=== PATIENT | male | born 1960 | race Caucasian/White ===

== ENCOUNTER 2017-01-26 10:39 | Emergency (ER) | payer SELFPAY ==
[~2017-01-26] VITALS: Ht 170.2 cm; Wt 81.6 kg
[2017-01-26 10:40] VITALS: BP_SYST 116
--- NOTE | 2017-01-26 10:40 | NUR ---
[facility] to bed 4
--- NOTE | 2017-01-26 10:45 | NUR ---
Dr. Quevedo at bedside for evaluation
[2017-01-26] MEDS ORDERED: NALOXONE HCL 2 MG/2 ML SYR IVP ONE (11:00)
--- NOTE | 2017-01-26 11:00 | NUR ---
pt refusing IV, refusing lab draw. [facility] notified
--- NOTE | 2017-01-26 12:00 | NUR ---
Ambulatory to restroom with steady gait.
--- NOTE | 2017-01-26 13:00 | NUR ---
Pt continuing to refuse evaluation and any tx. Pt AAOx4. Phone numbers provided by pt called. Family unable for pt pickup. Family reports pt has h/o beligerent behavior, ETOH and drug use. Pt remains noncomplaint with information regarding circumstances prior to ED arrival. Dr. Quevedo explained AMA to pt.
[2017-01-26] MEDS ORDERED: KETAMINE HCL 500 MG/10 ML VIAL IM ONE (13:15)
[2017-01-26 13:18] VITALS: BP_SYST 116
--- NOTE | 2017-01-26 13:18 | NUR ---
Patient does not wish to proceed with medical care recommended by Dr. Quevedo. Patient given information related to possible complications, up to and including , which could occur as a result of leaving hospital at this time. Patient verbalizes understanding of risks involved leaving against medical advice. Patient has signed AMA form.
== END 2017-01-26 13:18 | disposition left against medical advice (07) ==
LOC: SED 10:39 → SIC 17:51 → UNDOADMIN 17:51
DX: S09.90XA Unspecified injury of head, initial encounter (principal); K21.9 Gastro-esophageal reflux disease without esophagitis; I10 Essential (primary) hypertension; Y04.2XXA Assault by strike against or bumped into by another person, initial encounter; Y93.89 Activity, other specified; Y92.89 Other specified places as the place of occurrence of the external cause; Y99.8 Other external cause status
CPT/HCPCS: 71010; 93005; 94640; 99284

== ENCOUNTER 2017-01-26 14:29 | Inpatient (IN) | payer OTHER ==
[~2017-01-26] VITALS: Ht 172.7 cm; Wt 81.6 kg
[2017-01-26 14:30] VITALS: BP_SYST 118
[2017-01-26] MEDS ORDERED: ONDANSETRON HCL 4 MG/2 ML VIAL IVP ONE (15:15)
[2017-01-26] MEDS ORDERED: PANTOPRAZOLE SODIUM 40 MG/VIAL (PROTONIX) IVP ONE (15:15)
[2017-01-26] MEDS ORDERED: NACL 0.9% 1,000 ML IV ONE ×3 (15:15→18:15)
[2017-01-26] MEDS ORDERED: PANTOPRAZOLE SODIUM 40 MG/VIAL (PROTONIX) ONE (15:21)
[2017-01-26] MEDS: PANTOPRAZOLE SODIUM 40 MG in NS 50 ML IV SCH ×2 (15:38→19:57)
[2017-01-26 15:48] LABS: BASOPHILS # (AUTO) 0.1 K/uL (0.0-0.2); BASOPHILS % (AUTO) 0.4 % (0.0-2.0); EOSINOPHILS % (AUTO) 0.2 % (0.0-4.0); HEMATOCRIT 22.9 % (36-54); HEMOGLOBIN 7.4 g/dL (14.0-18.0); LYMPHOCYTES # (AUTO) 2.3 K/uL (1.0-5.5); LYMPHOCYTES % (AUTO) 15.1 % (20.5-51.5); MEAN CORPUSCULAR HEMOGLOBIN 22 pg (27-31); MEAN CORPUSCULAR HGB CONC 32 % (32-36); MEAN CORPUSCULAR VOLUME 68 fL (79.0-98.0); MONOCYTES # (AUTO) 0.9 K/uL (0.0-1.0); MONOCYTES % (AUTO) 6.1 % (1.7-9.3); NEUTROPHILS # (AUTO) 12.1 K/uL (1.8-7.7); NEUTROPHILS % (AUTO) 78.2 % (40.0-70.0); PLATELET COUNT (AUTO) 363 K/uL (130-430); RED BLOOD CELL COUNT(AUTO) 3.36 MIL/uL (4.2-6.2); RED CELL DISTRIBUTION WIDTH 20.5 % (9.0-15.0); WHITE BLOOD COUNT (AUTO) 15.4 K/uL (4.8-10.8)
[2017-01-26 16:11] LABS: CALCIUM 8.1 mg/dL (8.4-11.0); CREATININE 1.14 mg/dL (0.55-1.30); POTASSIUM 4.1 mmol/L (3.5-5.1)
[2017-01-26 16:15] LABS: ALBUMIN 2.8 g/dL (3.4-4.8); TOTAL BILIRUBIN 1.7 mg/dL (0.0-1.0)
[2017-01-26 16:21] LABS: INR 1.2 (0.80-1.20); PROTHROMBIN TIME 13.4 SECS (9.5-12.5)
[2017-01-26] MEDS ORDERED: KETAMINE HCL 500 MG/10 ML VIAL IVP ONE (16:45)
[2017-01-26 17:40] LABS: BARBITURATE, URINE NEGATIVE (NEG <=200); BENZODIAZEPINE, URINE NEGATIVE (NEG <=150); CANNABINOID, URINE NEGATIVE (NEG <=50); COCAINE, URINE NEGATIVE (NEG <=150); METHAMPHETAMINES SCREEN,URINE POSITIVE (NEG <=500); OPIATE, URINE POSITIVE (NEG <=100); PHENCYCLIDINE SCREEN,URINE NEGATIVE (NEG <=25); UR TRICYCLIC ANTIDEPRESSANTS NEGATIVE (NEG <=300); URINE AMPHETAMINE POSITIVE (NEG <=500); URINE METHADONE NEGATIVE (NEG <=200); URINE OXYCODONE SCREEN NEGATIVE (NEG <=100); URINE PROPOXYPHENE SCREEN NEGATIVE (NEG <=300)
[2017-01-26] MEDS ORDERED: NACL 0.9% 1,000 ML IV SCH (17:48)
[2017-01-26] MEDS ORDERED: MORPHINE 2 MG/ML INJ. SYRINGE IVP PRN (18:00)
[2017-01-26] MEDS ORDERED: ONDANSETRON HCL 4 MG/2 ML VIAL IVP PRN (18:00)
[2017-01-26] MEDS ORDERED: OCTREOTIDE ACETATE 500 MCG in NS 247.5 ML IV ONE (18:00)
[2017-01-26] MEDS ORDERED: ACETAMINOPHEN 325 MG TABLET PO PRN (18:00)
[2017-01-26] MEDS ORDERED: IPRATROPIUM/ALBUTEROL SULFATE 3 ML AMPUL.NEB INH PRN (18:00)
[2017-01-26] MEDS ORDERED: PIPERACILLIN/TAZO 3.375 GM in NS 50 ML IV ONE (18:15)
[2017-01-26 18:17] LABS: FREE T4 (FREE THYROXINE) 0.9 ng/dl (0.8-1.5)
[2017-01-26 18:20] LABS: BILIRUBIN,DIRECT 0.5 mg/dL (0.0-0.3); PHOSPHORUS 2.8 mg/dL (2.7-4.5); THYROID STIMULATING HORMONE 0.68 uIu/mL (0.34-4.82)
[2017-01-26 18:21] LABS: TOTAL IRON BIND. CAPACITY 381 ug/dL (250-450)
[2017-01-26 18:36] VITALS: BP_SYST 134
[2017-01-26] MEDS: IPRATROPIUM/ALBUTEROL SULFATE 3 ML AMPUL.NEB INH SCH (19:35)
[2017-01-26] MEDS ORDERED: NS 500 ML IV ONE (19:45)
[2017-01-26 20:00] VITALS: BP_SYST 130
[2017-01-26] MEDS ORDERED: cefTRIAXone 1 GM IVPB PREMIX 50 ML IV ONE (20:39)
[2017-01-26] MEDS: DOCUSATE SODIUM 100 MG CAPSULE PO SCH (21:00)
[2017-01-26 21:25] VITALS: BP_SYST 134
[2017-01-27] VITALS (16 sets, daily range): BP systolic 96–144
[2017-01-27] MEDS: IPRATROPIUM/ALBUTEROL SULFATE 3 ML AMPUL.NEB INH SCH ×3 (01:12→20:12)
[2017-01-27] MEDS: NACL 0.9% 1,000 ML IV SCH ×3 (06:24→16:19)
[2017-01-27] MEDS: cefTRIAXone 1 GM in D5W 50 ML IV SCH ×2 (06:26→20:48)
[2017-01-27 07:01] LABS: BASOPHILS % (AUTO) 0.3 % (0.0-2.0); EOSINOPHILS % (AUTO) 0.2 % (0.0-4.0); LYMPHOCYTES # (AUTO) 2.2 K/uL (1.0-5.5); LYMPHOCYTES % (AUTO) 14.9 % (20.5-51.5); MEAN CORPUSCULAR HEMOGLOBIN 23 pg (27-31); MEAN CORPUSCULAR HGB CONC 32 % (32-36); MEAN CORPUSCULAR VOLUME 70 fL (79.0-98.0); MONOCYTES # (AUTO) 0.9 K/uL (0.0-1.0); MONOCYTES % (AUTO) 5.7 % (1.7-9.3); NEUTROPHILS % (AUTO) 78.9 % (40.0-70.0); PLATELET COUNT (AUTO) 238 K/uL (130-430); WHITE BLOOD COUNT (AUTO) 15.1 K/uL (4.8-10.8)
[2017-01-27 07:04] LABS: HEMATOCRIT 17.4 % (36-54); HEMOGLOBIN 5.6 g/dL (14.0-18.0)
[2017-01-27 07:15] LABS: LDL CHOLESTEROL 25 mg/dL (<100)
[2017-01-27 07:40] LABS: CHOLESTEROL < 50 mg/dL (<200); HDL CHOLESTEROL 23 mg/dL (>45); TRIGLYCERIDES 66 mg/dL (30-150)
[2017-01-27] MEDS ORDERED: MEPERIDINE HCL/PF 100 MG/ML AMP ONE ×2 (08:25→16:25)
[2017-01-27] MEDS ORDERED: SIMETHICONE 40 MG/0.6 ML ML ONE ×2 (08:25→16:24)
[2017-01-27] MEDS ORDERED: MIDAZOLAM HCL 5 MG/5 ML VIAL ONE ×2 (08:26→16:25)
[2017-01-27] MEDS ORDERED: DIPHENHYDRAMINE INJ 50 MG/ML VIAL ONE ×2 (08:26→16:24)
[2017-01-27] MEDS: DOCUSATE SODIUM 100 MG CAPSULE PO SCH ×2 (09:00→20:45)
[2017-01-27 10:11] LABS: T4 (THYROXINE) 6.3 ug/dL (4.5-12.0)
[2017-01-27 11:20] LABS: HEPATITIS A AB, IgM Negative (Negative); HEPATITIS B CORE AB, IgM Negative (Negative); HEPATITIS B SURFACE AG Negative (Negative)
[2017-01-27] MEDS: LORazepam 2 MG/ML VIAL IVP PRN ×3 (11:33→23:51)
[2017-01-27] MEDS: PANTOPRAZOLE SODIUM 40 MG in NS 50 ML IV SCH ×3 (11:44→20:49)
[2017-01-27 12:35] LABS: BASOPHILS % (AUTO) 0.2 % (0.0-2.0); LYMPHOCYTES # (AUTO) 0.9 K/uL (1.0-5.5); MEAN CORPUSCULAR HEMOGLOBIN 25 pg (27-31); MEAN CORPUSCULAR HGB CONC 33 % (32-36); MEAN CORPUSCULAR VOLUME 74 fL (79.0-98.0); MONOCYTES % (AUTO) 5.8 % (1.7-9.3); NEUTROPHILS # (AUTO) 16.2 K/uL (1.8-7.7); PLATELET COUNT (AUTO) 188 K/uL (130-430); RED BLOOD CELL COUNT(AUTO) 2.71 MIL/uL (4.2-6.2); RED CELL DISTRIBUTION WIDTH 23.3 % (9.0-15.0); WHITE BLOOD COUNT (AUTO) 18.1 K/uL (4.8-10.8)
[2017-01-27 12:39] LABS: HEMOGLOBIN 6.7 g/dL (14.0-18.0)
[2017-01-27 15:15] LABS: MEAN CORPUSCULAR HEMOGLOBIN 24 pg (27-31); MEAN CORPUSCULAR HGB CONC 32 % (32-36); MEAN CORPUSCULAR VOLUME 75 fL (79.0-98.0); PLATELET COUNT (AUTO) 185 K/uL (130-430); RED BLOOD CELL COUNT(AUTO) 2.84 MIL/uL (4.2-6.2); RED CELL DISTRIBUTION WIDTH 23.5 % (9.0-15.0); WHITE BLOOD COUNT (AUTO) 20.2 K/uL (4.8-10.8)
[2017-01-27 15:24] LABS: HEMATOCRIT 21.2 % (36-54); HEMOGLOBIN 6.8 g/dL (14.0-18.0)
[2017-01-27 17:08] LABS: BAND % (MANUAL) 5 % (0-6); BASOPHILS % (MANUAL) 0 % (0-2); EOSINOPHILS % (MANUAL) 0 % (0-7); LYMPHOCYTES % (MANUAL) 4 % (20-46); MONOCYTES % (MANUAL) 5 % (0-11)
[2017-01-27] MEDS ORDERED: OCTREOTIDE ACETATE 1,250 MCG in NS 243.75 ML IV SCH (17:30)
[2017-01-27] MEDS ORDERED: NACL 0.9% 1,000 ML IV ONE (17:30)
[2017-01-27] MEDS ORDERED: OCTREOTIDE ACETATE 500 MCG in NS 247.5 ML IV SCH (17:45)
[2017-01-27 19:41] LABS: BASOPHILS % (AUTO) 0.3 % (0.0-2.0); EOSINOPHILS % (AUTO) 0.3 % (0.0-4.0); HEMATOCRIT 25.7 % (36-54); HEMOGLOBIN 8.5 g/dL (14.0-18.0); LYMPHOCYTES # (AUTO) 1.3 K/uL (1.0-5.5); LYMPHOCYTES % (AUTO) 8.6 % (20.5-51.5); MEAN CORPUSCULAR HEMOGLOBIN 26 pg (27-31); MEAN CORPUSCULAR HGB CONC 33 % (32-36); MEAN CORPUSCULAR VOLUME 78 fL (79.0-98.0); MONOCYTES # (AUTO) 0.8 K/uL (0.0-1.0); MONOCYTES % (AUTO) 5.4 % (1.7-9.3); NEUTROPHILS # (AUTO) 13.1 K/uL (1.8-7.7); NEUTROPHILS % (AUTO) 85.4 % (40.0-70.0); PLATELET COUNT (AUTO) 171 K/uL (130-430); RED BLOOD CELL COUNT(AUTO) 3.31 MIL/uL (4.2-6.2); WHITE BLOOD COUNT (AUTO) 15.2 K/uL (4.8-10.8)
[2017-01-28] VITALS (9 sets, daily range): BP systolic 117–202
[2017-01-28 01:15] LABS: BASOPHILS # (AUTO) 0.2 K/uL (0.0-0.2); EOSINOPHILS # (AUTO) 0.1 K/uL (0.0-0.4); MEAN CORPUSCULAR HGB CONC 33 % (32-36); MONOCYTES # (AUTO) 0.9 K/uL (0.0-1.0)
[2017-01-28 01:20] LABS: BASOPHILS % (AUTO) 1.8 % (0.0-2.0); EOSINOPHILS % (AUTO) 0.8 % (0.0-4.0); HEMATOCRIT 24.4 % (36-54); HEMOGLOBIN 8.1 g/dL (14.0-18.0); LYMPHOCYTES # (AUTO) 1.4 K/uL (1.0-5.5); LYMPHOCYTES % (AUTO) 11.8 % (20.5-51.5); MEAN CORPUSCULAR HEMOGLOBIN 27 pg (27-31); MEAN CORPUSCULAR VOLUME 79 fL (79.0-98.0); MONOCYTES % (AUTO) 7.3 % (1.7-9.3); NEUTROPHILS # (AUTO) 9.3 K/uL (1.8-7.7); NEUTROPHILS % (AUTO) 78.3 % (40.0-70.0); PLATELET COUNT (AUTO) 170 K/uL (130-430); RED BLOOD CELL COUNT(AUTO) 3.07 MIL/uL (4.2-6.2); RED CELL DISTRIBUTION WIDTH 22.5 % (9.0-15.0); WHITE BLOOD COUNT (AUTO) 11.9 K/uL (4.8-10.8)
[2017-01-28] MEDS ORDERED: OCTREOTIDE ACETATE 200 MCG/1 ML 5ML VIAL ONE (01:56)
[2017-01-28] MEDS: NACL 0.9% 1,000 ML IV SCH (01:59)
[2017-01-28] MEDS: PANTOPRAZOLE SODIUM 40 MG in NS 50 ML IV SCH ×2 (02:01→08:38)
[2017-01-28] MEDS: IPRATROPIUM/ALBUTEROL SULFATE 3 ML AMPUL.NEB INH SCH ×2 (06:00)
[2017-01-28 07:06] LABS: CREATININE 0.66 mg/dL (0.55-1.30)
[2017-01-28 07:48] LABS: HEMOGLOBIN 7.8 g/dL (14.0-18.0); MEAN CORPUSCULAR HEMOGLOBIN 25 pg (27-31); MEAN CORPUSCULAR HGB CONC 32 % (32-36); MEAN CORPUSCULAR VOLUME 78 fL (79.0-98.0); PLATELET COUNT (AUTO) 141 K/uL (130-430); RED BLOOD CELL COUNT(AUTO) 3.07 MIL/uL (4.2-6.2); RED CELL DISTRIBUTION WIDTH 22.9 % (9.0-15.0); WHITE BLOOD COUNT (AUTO) 8.4 K/uL (4.8-10.8)
[2017-01-28 07:49] LABS: BASOPHILS % (AUTO) 0.5 % (0.0-2.0); EOSINOPHILS # (AUTO) 0.1 K/uL (0.0-0.4); EOSINOPHILS % (AUTO) 1.2 % (0.0-4.0); LYMPHOCYTES # (AUTO) 1.2 K/uL (1.0-5.5); LYMPHOCYTES % (AUTO) 14.8 % (20.5-51.5); MONOCYTES # (AUTO) 0.6 K/uL (0.0-1.0); MONOCYTES % (AUTO) 6.9 % (1.7-9.3); NEUTROPHILS # (AUTO) 6.5 K/uL (1.8-7.7); NEUTROPHILS % (AUTO) 76.6 % (40.0-70.0)
[2017-01-28] MEDS ORDERED: PROPRANOLOL HCL 10 MG TABLET (INDERAL) PO SCH (10:00)
[2017-01-29 15:23] LABS: HEMOGLOBIN A1C 4.7 % (4.8-5.6)
== END 2017-01-28 10:31 | disposition left against medical advice (07) | DRG 368 ==
LOC: SED 14:29 → SIC 18:14
PROVIDERS: ADMIT Family Medicine; ATTEND Family Medicine
PROC: 30233R1 Transfusion of Nonautologous Platelets into Peripheral Vein, Percutaneous Approach (ICD-10-PCS; 2017-01-27)
PROC: 30233N1 Transfusion of Nonautologous Red Blood Cells into Peripheral Vein, Percutaneous Approach (ICD-10-PCS; 2017-01-27)
PROC: 0DJ08ZZ Inspection of Upper Intestinal Tract, Via Natural or Artificial Opening Endoscopic (ICD-10-PCS; principal; 2017-01-27 16:30)
DX: I85.01 Esophageal varices with bleeding (principal); E43 Unspecified severe protein-calorie malnutrition; K76.6 Portal hypertension; D62 Acute posthemorrhagic anemia; K70.30 Alcoholic cirrhosis of liver without ascites; K22.8 Other specified diseases of esophagus; Z53.21 Procedure and treatment not carried out due to patient leaving prior to being seen by health care provider; F15.90 Other stimulant use, unspecified, uncomplicated; F10.20 Alcohol dependence, uncomplicated; Y90.9 Presence of alcohol in blood, level not specified; I10 Essential (primary) hypertension; K21.9 Gastro-esophageal reflux disease without esophagitis; F19.10 Other psychoactive substance abuse, uncomplicated; Z68.27 Body mass index [BMI] 27.0-27.9, adult
CPT/HCPCS: 36415; 43244; 70450-TC; 71010; 76700-TC; 80048; 80053; 80061; 80074; 80307; 82140-TC; 82150-TC; 82248-TC; 83036; 83540-TC; 83550-TC; 83605; 83690-TC; 83735-TC; 83880; 84100-TC; 84436; 84439; 84443-TC; 84479; 85007; 85025; 85027; 85610-TC; 85730-TC; 86886; 86900; 86901; 86920; 87040-TC; 87081; 94640; 96365; 96366; 96375; 99291; C1751; C9113; G0482; J0696; J1200; J2060; J2175; J2250; J2270; J2354; J2405; J2543; J7030; J7040; J7050; J7060; P9021; P9034